=== PATIENT | female | born 1975 | race African-American/Black ===

== ENCOUNTER 2018-03-12 15:17 | Emergency (ER) | payer BC ==
[~2018-03-12] VITALS: Ht 172.7 cm; Wt 90.0 kg
[~2018-03-12 15:17] MED LIST: CIPROFLOXACN500 MG PO; ULTRAM50 MG PO
[2018-03-12 15:59] LABS: HEMATOCRIT 36.2 % (37.0-47.0); HEMOGLOBIN 12.2 g/dl (12.0-16.0); IMMATURE GRANULOCYTES 0.2 % (0.0-5.0); MEAN CORPUSCULAR HGB 33.2 pG CALC (26.0-32.0); MEAN CORPUSCULAR HGB CONC 33.7 g/L CALC (32.0-36.0); NEUT# 2.4 thou/uL (2.00-7.15); RED BLOOD COUNT 3.68 mill/uL (4.20-5.60); RED CELL DISTRI WIDTH 16.3 % (11.5-15.5)
[2018-03-12 16:06] LABS: MEAN CELL VOLUME 98.4 fL CALC (80.0-100.0)
[2018-03-12 16:13] LABS: ANION GAP 13 (6-22 (CALC)); BUN 9 mg/dL (7-17); BUN/CREATININE RATIO 11 (12-20 (CALC)); CARBON DIOXIDE 26 mmol/l (22-30); CHLORIDE 106 mmol/l (95-108); CREATININE 0.8 mg/dL (0.5-1.0); GFR > 60 ML/MIN (>=60 (CALC)); GFR FOR AFR.AMER. > 60 ML/MIN (>=60 (CALC)); POTASSIUM 3.9 mmol/l (3.5-5.1); SODIUM 142 mmol/l (137-146)
[2018-03-12 23:11] LABS: ALBUMIN 4.4 g/dL (3.2-5.0); BILIRUBIN, TOTAL 0.6 mg/dL (0.0-1.4)
[2018-03-12] MEDS ORDERED: MEDDOSEPAK PO (23:49)
[2018-03-12] MEDS ORDERED: FIORICET PO (23:49)
[2018-03-13 00:07] VITALS: BP 118/79
== END 2018-03-13 00:14 | disposition home or self-care (01) | DRG 103 ==
LOC: ED 15:17
PROVIDERS: Emergency Medicine; Family Medicine
DX: R51 Headache (principal); M54.2 Cervicalgia; E03.9 Hypothyroidism, unspecified; K90.0 Celiac disease; F41.9 Anxiety disorder, unspecified

== ENCOUNTER 2022-05-06 15:51 | Emergency (ER) | payer BC ==
[~2022-05-06] VITALS: Ht 172.7 cm; Wt 91.8 kg
[2022-05-06] VITALS (9 sets, daily range): BP systolic 117–134; BP diastolic 78–94
[~2022-05-06 15:51] MED LIST changes: +FIORICET PO; +MEDDOSEPAK PO
[2022-05-06] MEDS ORDERED: AMITRIPTYLINE H25 MG PO (16:12)
[2022-05-06] MEDS ORDERED: DIAZEPAM2 MG PO (16:13)
[2022-05-06] MEDS ORDERED: EMGALITY120 MG/ML IM (16:13)
[2022-05-06] MEDS ORDERED: VOLTAREN1%GEL TOP (17:52)
[2022-05-06] MEDS ORDERED: TRAMADOL HYDROC50 M1 PO ×2 (17:53→17:54)
== END 2022-05-06 18:30 | disposition home or self-care (01) | DRG 948 ==
LOC: ED 15:51
DX: R52 Pain, unspecified (principal); R07.81 Pleurodynia; M25.551 Pain in right hip